=== PATIENT | female | born 1985 | race Caucasian/White ===

== ENCOUNTER 2016-09-09 19:10 | Inpatient (IN) | payer OTHER ==
[2016-09-09 19:33] VITALS: BMI 32.5
--- NOTE | 2016-09-09 19:44 | OBHP ---
Datetime: 09/09/2016 19:35 IP Adm Impression: , intrauterine Admit Comment, IP Provider: at 27.6weeks send from office as no fh seen on doppler. pt c/o decr ease fm from few days,no ctxs, vb, no lof.pt had first sccreening +for down syndrome.pt refused amnio centesis. obhx primi pmh de med pnv all nkda psh laprscopy soch den ve closed a/p at 27+weeks demise admit to l_d npo/ivf labs sonogram to confirm anticipate vaginal delivery Pelvic Type - PN: Adequate Extremities - PN: Normal Abdomen - PN: Normal Back - PN: Normal Breast - PN: Not Done Lungs - PN: Normal Heart - PN: Normal Thyroid - PN: Not Done Neurologic - PN: Normal HEENT - PN: Normal General - PN: Normal Contraction Comments Provider: none Comments, ACOG Physical Exam: gravid,non tender ext no edema,no clf ten ve closed EGA AdmitDate IP: 27.6 Vital Signs Provider: Reviewed; Within Normal Limits IP Chief Complaint: Decreased movement Dilatation, Provider: 0 Effacement, Provider: 0 Station, Provider: -3 Genitourinary Exam: Normal DTRs - PN: Normal
--- NOTE | 2016-09-09 19:53 | OBADHP ---
Datetime: 09/09/2016 19:35 Admit Comment, IP Provider: at 27.6weeks send from office as no fh seen on doppler. pt c/o decr ease fm from few days,no ctxs, vb, no lof.pt had first sccreening +for down syndrome.pt refused amnio centesis. obhx primi pmh de med pnv all nkda psh laprscopy soch den ve closed a/p at 27+weeks demise admit to l_d npo/ivf labs sonogram to confirm pain management anticipate vaginal delivery Pelvic Type - PN: Adequate Extremities - PN: Normal Abdomen - PN: Normal Back - PN: Normal Breast - PN: Not Done Lungs - PN: Normal Heart - PN: Normal Thyroid - PN: Not Done Neurologic - PN: Normal HEENT - PN: Normal General - PN: Normal Contraction Comments Provider: none Comments, ACOG Physical Exam: gravid,non tender ext no edema,no clf ten ve closed IP Hx Assessment: The History has been Reviewed and is Current Vital Signs Provider: Reviewed; Within Normal Limits IP Chief Complaint: Decreased movement Dilatation, Provider: 0 Effacement, Provider: 0 Station, Provider: -3 Genitourinary Exam: Normal DTRs - PN: Normal EGA AdmitDate IP: 27.6 IP Adm Impression: , intrauterine IP Admit Plan: Admit to unit; Initiate demise protocol
--- NOTE | 2016-09-09 20:47 | US ---
EXAM: US Uterus, Limited CLINICAL HISTORY: 31 years old, female; Signs and symptoms; Lmp or gestational age (in weeks): 02/27/2016; Other: No heart; ; Additional info: R/O demise TECHNIQUE: Real-time ultrasound of the maternal uterus (limited) with image documentation. EXAM DATE/TIME: 09/09/2016 7:33 PM COMPARISON: There are no prior studies for comparison. FINDINGS: Gestation: There is a single intrauterine gestation in cephalic presentation. There is no cardiac activity. Cranial vault is misshapen. There is body wall edema. Amniotic fluid volume appears decreased. measurements BPD: 5.47 cm, 22 weeks 5 days HC: 22.42 cm, 24 weeks 3 days AC: 20.74 cm, 25 weeks 2 days] FL: 4.14 cm, 23 weeks 3 days Estimated weight: 692 g By sonographic criteria, gestational age is 24 weeks 0 days and estimated date of delivery 12/30/16 Cervix: Cervix measures 3.83 cm on transabdominal imaging IMPRESSION: Intrauterine demise approximately 24 weeks
[2016-09-09] MEDS: Lactated Ringer's 1,000 ML IV SCH (21:05)
[2016-09-09 21:35] LABS: BASO % 0.3 % (0.0-2.0); EOS % 0.2 % (0.0-4.0); HEMATOCRIT 34.3 % (34.0-47.0); LYMPH # 1.1 K/uL (1.0-4.3); LYMPH % 9.4 % (20.0-40.0); MEAN CELL VOLUME 84.3 fL (81.0-99.0); MEAN PLATELET VOLUME 7.5 fL (7.2-11.7); MONO # 0.5 K/uL (0.0-0.8); MONO % 3.9 % (0.0-10.0); PLATELET COUNT 517 K/uL (130-400); RED CELL DISTRIBUTION WIDTH 17.5 % (11.5-14.5)
[2016-09-09 21:50] LABS: CHLORIDE 102 mmol/L (98-107); POTASSIUM 4.1 mmol/L (3.6-5.2); SODIUM 138 mmol/L (132-148)
[2016-09-09 21:52] LABS: AST/SGOT 14 U/L (14-36); BILIRUBIN,TOTAL 0.4 mg/dL (0.2-1.3); CARBON DIOXIDE 20 mmol/L (22-30); GFR AFRICAN-AMERICAN > 60
[2016-09-09 21:53] LABS: ALKALINE PHOSPHATASE 118 U/L (38-126); ALT/SGPT 23 U/L (9-52); BLOOD UREA NITROGEN 7 mg/dL (7-17); CALCIUM 9.2 mg/dl (8.6-10.4); GLUCOSE,RANDOM 103 mg/dL (65-105); TOTAL PROTEIN 7.3 g/dL (6.3-8.3)
[2016-09-09 22:03] LABS: FDP INTERPRETATION NEGATIVE (NEGATIVE); FDP QUANTITY <10 ug/mL (<10)
[2016-09-09 22:06] LABS: URINE BACTERIA RARE (<OCC); URINE BILIRUBIN NEGATIVE (NEGATIVE); URINE BLOOD NEGATIVE (NEGATIVE); URINE COLOR Colorless (YELLOW); URINE GLUCOSE (UA) NORMAL (Normal); URINE KETONE NEGATIVE (NEGATIVE); URINE LEUKOCYTE ESTERASE TRACE Leu/uL (Negative); URINE PROTEIN NEGATIVE (NEGATIVE); URINE UROBILINOGEN NORMAL mg/dL (0.2-1.0)
[2016-09-09 22:09] LABS: RAPID PLASMA REAGIN NONREACTIVE (NONREACTIVE)
[2016-09-09 22:21] LABS: NEUTROPHIL 89 % (50-75); TOTAL CELLS COUNTED 100
[2016-09-09 22:23] LABS: FIBRINOGEN 533 mg/dL (200-400)
[2016-09-09 22:28] LABS: INR 0.9; PARTIAL THROMBOPLASTIN TIME 17 SECONDS (21-34)
[2016-09-10] MEDS ORDERED: Nalbuphine 20 mg/ml Inj (1 ml) ONE ×2 (03:35→07:36)
[2016-09-10] MEDS: Nalbuphine 20 mg/ml Inj (1 ml) IVP PRN ×2 (03:51→07:47)
[2016-09-10] MEDS: Lactated Ringer's 1,000 ML IV SCH (03:57)
--- NOTE | 2016-09-10 09:35 | OBDS ---
DELIVERY PERSONNEL Delivery Doctor: Juice Abbott MD Jacker Feeder: Amada Mccartney RN MATERNAL INFORMATION Delivery Anesthesia: None Medications in Delivery: pitocin 250 ml/hr, 20 unitls in 1000 ml LR Estimated Blood Loss (ml): 300 Placenta Cultured: Yes Maternal Complications: Other Other Maternal Complications: demise Provider Comments: Uneventful , Stillborn LABOR SUMMARY EDC: 12/03/2016 00:00 No. Babies in Womb: 1 LABOR INFORMATION Reason for Induction Other: I U F D Cervical Ripening Agents: Cytotec @ (Annotations: 200mcg PO) STAGES OF LABOR Stage 3 hrs: 1 Stage 3 min: 10 VAGINAL DELIVERY Episiotomy: None Laceration Extension: N/A Laceration Type: None Initial Vag Sponge Count: 10 Final Vag Sponge Count: 10 Initial Vag Sharps Count: 0 Final Vag Sharps Count: 0 Sponge Count Correct: Yes Sharps Count Correct: Yes Count Comment: count correct BABY A INFORMATION Infant Delivery Date/Time: 09/10/2016 07:53 Method of Delivery: Vaginal Born in Route : No : N/A Forceps: N/A Vacuum Extraction: N/A Shoulder Dystocia : No SHOULDER DYSTOCIA BABY A Delivery Date/Time: 09/10/2016 07:53 PRESENTATION/POSITION BABY A Presentation: Cephalic Cephalic Presentation: Vertex Breech Presentation: N/A PLACENTA INFORMATION BABY A Placenta Delivery Time : 09/10/2016 09:03 Placenta Method of Delivery: Manual Removal Placenta Status: Delivered SCORES BABY A Heart Rate 1 min: Absent Resp Effort 1 min: Absent Reflex Irritability 1 min: No Response Muscle Tone 1 min: Flaccid Color 1 min: Blue/Pale Resuscitation Effort 1 min: N/A SCORE 1 MIN: 0 Heart Rate 5 min: Absent Resp Effort 5 min: Absent Reflex Irritability 5 min: No Response Muscle Tone 5 min: Flaccid Color 5 min: Blue/Pale Resuscitation Effort 5 min: N/A SCORE 5 MIN: 0 INFORMATION BABY A Gestational Age at Delivery: 28.0 Gestational Status: Infant Outcome : Stillborn Sex: Male WEIGHT/LENGTH BABY A Birthweight (gms): 710 Weight (lb): 1 Weight (oz): 9 Length Inches: 13.00 Infant Length cms: 33.0
--- NOTE | 2016-09-10 09:41 | OBDCSUM ---
Datetime: 09/10/2016 09:35 Discharged to, Provider: Home Follow up at, Provider: Dr. Abbott Disch Instr Activity: May be up to bathroom; May be up for meals; May Shower Disch Instr Diet: Regular Discharge Instructions, Provider: Routine instructions given Discharge Time: 09/11/2016 10:00 Follow up in weeks, Provider: 3 weeks Disch Activity Restrictions: No sexual activity; Nothing in vagina - [place], tampons, douche Discharge Comment, Provider: Autopsy will be done Discharge Diagnosis Prov Other: I U F D Contraception after Delivery: Not Planning to Use
--- NOTE | 2016-09-10 09:58 | OBPPN ---
Datetime: 09/10/2016 09:54 PP Pain Prov: Within normal limits PP Breasts Prov: Normal PP Heart Prov: Normal PP Lungs Prov: Normal PP Abdomen/Uterus Prov: Normal PP Lochia Prov: Normal PP Vulva/Perineum Prov: Normal PP CVA Tenderness Prov: Normal PP Extremities Prov: Normal PP Impression Prov: Normal progression PP Plan Prov: Continue present management PP Progress Note Prov: No C/O after , Stillborn
[2016-09-10] MEDS ORDERED: ceFAZolin IV 2 gm in Dextrose 1 GM/50 ML BAG IVPB ONE ×2 (10:00→10:05)
[2016-09-10] MEDS ORDERED: Oxycodone/Acetaminophen 5/325 mg Tab PO PRN (10:07)
[2016-09-10 16:40] VITALS: O2SAT 100
[2016-09-11 07:52] LABS: BASO # 0.1 K/uL (0.0-0.2); BASO % 0.4 % (0.0-2.0); EOS # 0.1 K/uL (0.0-0.7); EOS % 0.8 % (0.0-4.0); HEMATOCRIT 30.3 % (34.0-47.0); LYMPH # 1.4 K/uL (1.0-4.3); LYMPH % 8.9 % (20.0-40.0); MEAN CELL VOLUME 84.7 fL (81.0-99.0); MEAN CORPUSCULAR HEMOGLOBIN 27.1 pg (27.0-31.0); MEAN PLATELET VOLUME 7.4 fL (7.2-11.7); MONO # 0.5 K/uL (0.0-0.8); MONO % 3.4 % (0.0-10.0); PLATELET COUNT 466 K/uL (130-400)
[2016-09-11 07:57] VITALS: BP 104/72; PULSE 84; RESP 18; TEMP 97
[2016-09-11 09:23] LABS: NEUTROPHIL 89 % (50-75); TOTAL CELLS COUNTED 100
== END 2016-09-11 12:30 | disposition home or self-care (01) | DRG 775 ==
LOC: C.EROB 19:10 → C.4D 19:44 → C.4M 09-10 11:09
PROVIDERS: ADMIT Obstetrics & Gynecology Gynecology; ATTEND Obstetrics & Gynecology Gynecology
PROC: 10E0XZZ Delivery of Products of Conception, External Approach (ICD-10-PCS; principal; 2016-09-10)
PROC: 3E033VJ Introduction of Other Hormone into Peripheral Vein, Percutaneous Approach (ICD-10-PCS; 2016-09-10)
DX: O36.4XX0 Maternal care for intrauterine death, not applicable or unspecified (principal); Z3A.28 28 weeks gestation of pregnancy; Z37.1 Single stillbirth